=== PATIENT | female | born 1985 | race Caucasian/White ===

== ENCOUNTER 2021-05-07 12:09 | Day surgery (SDC) | payer OTHER ==
[2021-05-06 08:53] VITALS: BMI 30.9
[~2021-05-07 12:09] MED LIST: Pre Op ABX Message 1 EACH MISC MISCELLANE ONE
[2021-05-07 12:44] VITALS: TEMP 97.4
[2021-05-07] MEDS ORDERED: LACTATED RINGERS 1,000 ML IV ONE (12:45)
[2021-05-07] MEDS ORDERED: LIDOCAINE 1% (10MG/ML) FOR IV START INTRADERMA ONE (12:45)
[2021-05-07] MEDS ORDERED: ONDANSETRON 4 MG/2 ML VIAL IVP ONE (12:46)
[2021-05-07] MEDS ORDERED: DEXAMETHASONE SOD PHOSPHATE 4 MG/ML 1 ML VIAL IV ONE (12:47)
[2021-05-07] MEDS ORDERED: ONDANSETRON 4 MG/2 ML VIAL ONE (12:48)
[2021-05-07] MEDS ORDERED: LIDOCAINE 2% (PF) 20 MG/ML 10 ML AMP SQ ONE ×3 (13:49→14:03)
[2021-05-07] MEDS ORDERED: MIDAZOLAM 2 MG/2 ML VIAL ONE (13:58)
[2021-05-07] MEDS ORDERED: PROPOFOL 10 MG/ML 20 ML VIAL IV ONE (13:58)
[2021-05-07] MEDS ORDERED: fentaNYL (PF) 50 MCG/ML 2 ML AMP ONE (13:58)
--- NOTE | 2021-05-07 14:16 | P.OP ---
Date of Procedure: 05/07/21 Procedure(s) Performed: PREOPERATIVE DIAGNOSES: 1. Right middle finger triggering POSTOPERATIVE DIAGNOSES: 1. Right middle finger triggering PROCEDURES PERFORMED: 1. Right middle finger open release of A1 monserrat ANESTHESIA: Local with IV sedation POSTDOCTORAL SCIENTIST: . None COMPLICATIONS: None ESTIMATED BLOOD LOSS: 0 mL. DISPOSITION: To post-anesthesia care unit INDICATIONS: . Francesca is a 36-year-old female with a history of right middle finger triggering. This has been very painful and bothersome. I recommended open release. The patient has signed the consent form and wishes to proceed with surgery after full explanation of the risks and potential complications. I have explained these as being inclusive of, but not limited to: Bleeding, infection, scarring, discomfort, blood vessel and/or nerve damage, incomplete release, flexion contracture, stiffness, and other risks. PROCEDURE: After appropriate consent was obtained, the patient was taken to the operating room placed in the supine position. Anesthesia was initiated, and after confirmation of adequate anesthesia, the patient was carefully positioned. Care was taken to make sure that all pressure points were adequately padded. Prepping and draping were completed in the usual aseptic fashion using ChloraPr ep. Timeout was called, confirming patient identity, side, procedure, and administration of antibiotics. No antibiotics were given as this was an uncomplicated hand case involving only soft tissue. The limb was exsanguinated with an Esmarch bandage and the tourniquet was inflated to 200 mmHg. Total tourniquet time for the case was approximately 12 minutes. The hand was positioned on a padded aluminum frame. Local infiltration of anesthetic was performed using 2% lidocaine along the area of the planned incision . An incision approximately 1.5 cm in length was created over the distal palmar crease in line with the third ray. This corresponded to the distance between the proximal most skin crease and the PIP joint crease. The incision was taken down just through dermis, and then skin hooks were applied and blunt dissection was then carried down to the tendon sheath. Tendon sheath was exposed medially and laterally and retractors were applied to retract neurovascular structures. The proximal extent of the A1 monserrat was noted and released under direct visualization using a number 15 blade. The sheath was extremely tight, sclerotic and thick. However, there was no significant underlying tendon damage. The flexor tendon was then removed from its sheath using a Ragnell retractor and flexion and extension of the PIP joint was noted to be full. The the patient had received quite a bit of sedation during the operation and therefore was unable to be awoken from sedation to demonstrate finger flexion and extension . Dressing was applied after irrigation and use of bipolar electrocautery for hemostasis. Tourniquet was deflated and pressure was held over the incision for 3 minutes for additional hemostasis. Patient tolerated the procedure well and taken to recovery room in stable condition. Sponge and needle counts were correct.
[2021-05-07 14:25] VITALS: RESP 18
[2021-05-07 14:38] VITALS: BP 117/80; PULSE 82
== END 2021-05-07 14:55 | disposition home or self-care (01) ==
LOC: OR 12:09
PROVIDERS: ATTEND Orthopaedic Surgery
DX: M65.331 Trigger finger, right middle finger (principal); F32.9 Major depressive disorder, single episode, unspecified; M79.7 Fibromyalgia; R51.9 Headache, unspecified; R45.0 Nervousness; Z98.891 History of uterine scar from previous surgery; Z82.49 Family history of ischemic heart disease and other diseases of the circulatory system; F17.200 Nicotine dependence, unspecified, uncomplicated; F41.9 Anxiety disorder, unspecified; Z97.2 Presence of dental prosthetic device (complete) (partial); Z79.1 Long term (current) use of non-steroidal anti-inflammatories (NSAID); Z79.899 Other long term (current) drug therapy
CPT/HCPCS: 26055; 81025; J2250; J1100; J2001; J2405; J3010; J2704